=== PATIENT | female | born 1960 | race Caucasian/White ===

== ENCOUNTER 2024-06-29 10:03 | Emergency (ER) | payer BC, SELFPAY ==
[2024-06-29] VITALS (21 sets, daily range): BP systolic 111–153; BP diastolic 66–94
--- NOTE | 2024-06-29 10:52 | ED.GENMED ---
History of Present Illness
<DIANN Moreno - Last Filed: 06/29/24 14:31>
General
Chief Complaint: Musculo-Skeletal Complaint
Source: patient
Exam Limitations: none
Time Seen by Provider: 06/29/24 10:27
Nursing documentation reviewed up to this point in time: agreed with
History of Present Illness
History of Present Illness:
Patient is a 63-year-old female who presents to the ER complaining of right ankle pain and injury. Patient slipped on black ice and rolled her right ankle. She denies hitting her head denies any other injuries.
Review of Systems
<DIANN Moreno - Last Filed: 06/29/24 14:31>
Review of Systems
Allergies reviewed?: Yes
All Other Systems: ROS reviewed and negative except as documented in HPI and ROS
Constitutional: Reports no symptoms
Musculoskeletal: Reports other (Right ankle pain and injury)
Skin: Reports no symptoms
Neurological: Reports no symptoms
Hematologic/Lymphatic: Reports no symptoms
Phy Exam
<DIANN Moreno - Last Filed: 06/29/24 14:31>
General Physical Exam
General Presentation: no apparent distress
General age: appears stated age
General Skin: warm and dry
General Habitus: normal
General Mental: alert
General Hydration: appears well hydrated
Neurological Exam
Neurological Exam: alert and oriented x3
Musculoskeletal Exam
Musculoskeletal Exam: other (Right lower extremity with strong pulses + swelling/tenderness to medial and distal ankle no prox tib/fib tenderness + strong distal pulses + nml distal sensation )
Skin Exam
Skin Exam: normal color and warm/dry
Psychiatric Exam
Psychiatric Exam: normal mood/affect
Course
<DIANN Moreno - Last Filed: 06/29/24 14:31>
Orders/Labs/Results
Orders:
Orders
06/29/24 10:23
CR Ankle - Right Min 3 Views * Urgent
Comment:
Reason For Exam: fall, ankle pain, deformity to ankle
06/29/24 11:03
IV Insert/Care/Rem.- Treatment PRN
06/29/24 11:30
Ketorolac [Toradol] 15 mg IV NOW STA
Propofol [Diprivan] 20 ml .ROUTE .STK-MED
CR Knee - Right 1 Or 2 Views Urgent
Comment:
Reason For Exam: ankle fx
06/29/24 12:58
CR Ankle - Right 2 Views Urgent
Comment: portable
Reason For Exam: post reduction
Vital Signs
Initial and Last Documented VS:
Initial Vital Signs
Temp Pulse Resp BP Pulse Ox
97.5 F 80 18 111/67 100
06/29/24 10:25 06/29/24 10:25 06/29/24 10:25 06/29/24 10:25 06/29/24 10:25
Last Documented Vital Signs
Temp Pulse Resp BP Pulse Ox
98.1 F 93 16 121/86 99
06/29/24 13:38 06/29/24 14:15 06/29/24 14:00 06/29/24 14:00 06/29/24 14:15
<Papo Taylor MD - Last Filed: 06/29/24 13:14>
Orders/Labs/Results
Orders:
Orders
06/29/24 10:23
CR Ankle - Right Min 3 Views * Urgent
Comment:
Reason For Exam: fall, ankle pain, deformity to ankle
06/29/24 11:03
IV Insert/Care/Rem.- Treatment PRN
06/29/24 11:30
Ketorolac [Toradol] 15 mg IV NOW STA
Propofol [Diprivan] 20 ml .ROUTE .STK-MED
CR Knee - Right 1 Or 2 Views Urgent
Comment:
Reason For Exam: ankle fx
06/29/24 12:58
CR Ankle - Right 2 Views Urgent
Comment: portable
Reason For Exam: post reduction
Vital Signs
Initial and Last Documented VS:
Initial Vital Signs
Temp Pulse Resp BP Pulse Ox
97.5 F 80 18 111/67 100
06/29/24 10:25 06/29/24 10:25 06/29/24 10:25 06/29/24 10:25 06/29/24 10:25
Last Documented Vital Signs
Temp Pulse Resp BP Pulse Ox
98.1 F 93 16 121/86 99
06/29/24 13:38 06/29/24 14:15 06/29/24 14:00 06/29/24 14:00 06/29/24 14:15
Procedures
<Papo Taylor MD - Last Filed: 06/29/24 13:14>
Moderate Sedation
ASA Risk Score: Class II
Chart and allergies reviewed: Yes
Consent for anesthesia obtained: Yes
Time out completed (validating right patient & procedure): Yes
Moderate Sedation Start Time(when first medication is given): 12:51
History of difficult intubation: No
Airway free of obstruction: Yes
Patient has a gag reflex: Yes
Patient is able to open mouth: Yes
Patient has no dentures: Yes
Patient has no loose teeth: Yes
Medication administered by Provider during Moderate Sedation: IV Propofol (mg)
Total dose administered: 120
Time drug administered: 12:51
Moderate Sedation Procedure End Time: 13:08
Splinting/Sling Placement
Right Ankle:
Procedure completed by: Papo Taylor MD; Jannet Javed NP
Pre-splint extermity exam: neurovascular intact
Type of splint: posterior short leg (posterior with stirrup)
Splint material: plaster
Splint checked by provider?: Yes
Normal distal neurovascular exam?: Yes
Joint/Fracture Reduction
Right Ankle:
Indication for procedure:: bimalleolar fracture
Procedure completed by: Papo Taylor MD; Jannet Javed NP
Consent form signed: Yes
Anesthesia/sedation: Moderate sedation
Injury was: closed
Further treatement: needs further treatment (ortho follow up)
Post reduction exam: stable
Capillary Refill: normal
Normal distal neurovascular exam?: Yes
<DIANN Moreno - Last Filed: 06/29/24 14:31>
MDM/Problems Addressed
Differential Diagnosis Includes:
not limited to fracture dislocation
MDM/Problems Addressed:
Patient is a 63-year-old female who slipped and fell on ice injuring her right ankle. Patient had no injuries denies hitting head. X-ray shows unstable bimalleolar fracture. Case was reviewed with orthopedics Dr. Nuñez who was able to visualize
x-ray image via [facility] text who does recommend reduction. Reduction was successfully completed by Dr. Kinney and myself. Patient was placed in a sugar-tong as well as a posterior splint. Patient tolerated procedure well. Postreduction film
reviewed with successful reduction. Patient to follow-up in the office discussed with patient the importance of calling tomorrow morning. Will DC with crutches nonweightbearing.
<DIANN Moreno - Last Filed: 06/29/24 14:31>
*Critical Care Note
Total Time (30-74mins, 75-104mins- exclusive of procedures): Not Applicable
ED Attending Note
<DIANN Moreno - Last Filed: 06/29/24 14:31>
-
Portions of this chart may have been created with voice recognition software.� Occasional wrong word or��sound alike� substitutions may have occurred due to the inherent limitations of voice recognition software.
<Papo Taylor MD - Last Filed: 06/29/24 13:14>
ED Attending Note
Patient seen and examined by attending physician: Yes
ED Attending Note:
I have seen and evaluated the patient with a [id number] encounter. I have spoken to the advance practicer provider and involved in the medical history, the physical exam, medical decision making.
Evaluation and management service: agree unless noted differently below.
Results interpretation: agree unless noted differently below.
Focused HPI: 63-year-old female presents to the emergency room after a slip and fall with a right ankle injury. Patient was walking on ice and slipped and fell and twisted her ankle and heard a pop. She had immediate pain in the ankle and
deformity. She says she did not hit her head or sustain any other injuries. She is on any blood thinners.
Physical exam: Awake alert no distress. Ankle deformed, appears externally rotated compared to the knee/minaya; she has good brisk capillary refill in all digits of the right foot and a strong distal pulse in the right leg; she has no tenderness of
the knee on the right; she has some bruising around the ankle but no abrasions or lacerations
Medical Decision Makin-year-old female presents with a right ankle injury after slip and fall. X-ray shows bimalleolar fracture. 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
outpatient surgery. Patient is very comfortable with this plan. Will plan for moderate sedation, closed reduction and splinting. Will check x-ray of the knee for completeness. Toradol for pain.
X-ray knee unremarkable. Splinted under moderate sedation as documented procedure note. Appropriate alignment on postreduction x-ray. Strict non-weightbearing, discharged with Ortho referral.
Discharge Plan
Departure
Patient Disposition: Home (Routine Discharge)
Date of Disposition: 06/29/24
Time of Disposition: 14:18
Patient with high blood pressure during this ER visit?: No
Condition: Fair
Covid-19: Not Applicable
Discharge Problem:
Ankle fracture
Instructions: Ankle Fracture (DC), Splint Care
Referrals:
Wilbert Nuñez MD [Active] -
UNKNOWN - PT DOES,NOT KNOW [Family Provider] -
Activity Restrictions/Additional Instructions:
As discussed use crutches for ambulation no weightbearing. Keep splint clean and dry. Do not wet. Keep elevated as much as possible. Ibuprofen every 8 hours for discomfort follow-up with orthopedics as soon as possible. Call tomorrow morning
for an appointment. Keep elevate is much as possible return if any worsening of symptoms of increased pain, cold, numb, blue toes
Interventions
Interventions:
*Risk Screen - Suicide Last Done: 06/29/24 11:18
*General Assessment Last Done: 06/29/24 11:18
*Neglect/Abuse Screening Last Done: 06/29/24 11:18
*ED COVID-19 Vaccine History Last Done: 06/29/24 11:18
ED-Musculoskeletal Assessment Last Done: 06/29/24 11:19
Discharge Date and Time
Print Language: MALTESE
[2024-06-29] MEDS: TORADOL 15 MG IV (11:34)
== END 2024-06-29 14:37 | disposition home or self-care (01) ==
LOC: EMR 10:03
PROVIDERS: EMERGENCY PHYSICIAN Emergency Medicine
DX: S82.841A Displaced bimalleolar fracture of right lower leg, initial encounter for closed fracture (principal); W00.0XXA Fall on same level due to ice and snow, initial encounter; Y93.01 Activity, walking, marching and hiking
CPT/HCPCS: 99283; 27810; 96374; 99152; 73560; 73600; 73610

== ENCOUNTER 2024-07-05 06:17 | Day surgery (SDC) | payer BC, SELFPAY ==
[2024-07-04 11:38] LABS: Hematocrit 38.6 % (37.0-47.0); Hemoglobin 12.8 g/dL (12.0-16.0); Mean Corp Hgb Conc. 33.2 g/dL (33.0-37.0); Mean Corpuscular Hgb 29.2 pg (27.0-31.0); Mean Corpuscular Volume 87.9 fL (81.0-99.0); Mean Platelet Volume 11.3 fL (7.4-10.4); Platelet Count 422 10^3/uL (130-400); Red Blood Cell Count 4.39 10^6/uL (4.20-5.40); Red Cell Dist. Width 13.3 % (11.5-14.5); White Blood Cell Count 8.9 10^3/uL (4.8-10.8)
[2024-07-04 13:04] VITALS: BMI 24.4
[2024-07-05] VITALS (7 sets, daily range): BP systolic 116–133; BP diastolic 65–70; BMI 24.4
[2024-07-05] MEDS: TYLENOL 1000 MG PO (13:53)
--- NOTE | 2024-07-05 14:03 | PTCARENOTE ---
Report passed onto next RN. Did not finish admission. Next RN to draw BMP and insert IV.
[2024-07-05 15:41] LABS: Blood Urea Nitrogen 10 mg/dl (7-17); Calcium 9.2 mg/dl (8.4-10.2); Carbon Dioxide 23 mmol/L (22-30); Chloride 102 mmol/L (98-107); Estimated Creatinine Clearance 95 ml/min; Glucose 89 mg/dl (70-99); Potassium 4.3 mmol/L (3.5-5.1); Sodium 136 mmol/L (135-145); eGFR > 60.00
--- NOTE | 2024-07-05 19:49 | W.IMMPOSTOP ---
Surgical Immed Post Op Note
-
Primary Surgeon: Wilbert Nuñez MD
Assisting Surgeon: Perry Flood MD
Pre-op Diagnosis: right bimalleolar ankle fracture
Post-op Diagnosis: right bimalleolar ankle fracture
Procedure Performed: right ankle open reduction internal fixation
Anesthesia Type: general with regional block
Specimen / Cultures: none
Estimated Blood Loss: 10mL
Complications: none apparent
Operative Findings: posterior comminution of the medial malleolus
Tourniquet time: 120 minutes
Implants: [place] distal lateral fibula plate 3 hole; 3.5mm lag screw; 3.5mm cannulated screw x2
Operative dictation #: [id number]
[2024-07-05] MEDS: TYLENOL 650 MG PO (20:28)
== END 2024-07-05 21:07 | disposition home or self-care (01) ==
LOC: SDS 06:17
PROVIDERS: ATTENDING PHYSICIAN Student in an Organized Health Care Education/Training Program
DX: S82.841A Displaced bimalleolar fracture of right lower leg, initial encounter for closed fracture (principal); W10.9XXA Fall (on) (from) unspecified stairs and steps, initial encounter
CPT/HCPCS: 27814; 27829; 36415; 73610; 76000; 80048; 85027; 93005; C1713; C1769